=== PATIENT | female | born 2000 | race Caucasian/White ===

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

== ENCOUNTER 2021-06-17 21:16 | Emergency (ER) | payer OTHER, MEDICAID ==
[2021-06-17] MEDS ORDERED: Penicillin V Potassium 500 MG Tab PO ONE (21:49)
--- NOTE | 2021-06-17 21:51 | EDM.PDOC ---
ED HPI GENERAL MEDICAL PROBLEM - General Chief Complaint: ENT Problem Stated Complaint: SORE THROAT Time Seen by Provider: 06/17/21 21:35 Source of Information: Reports: Patient History Limitations: Reports: No Limitations - History of Present Illness INITIAL COMMENTS - FREE TEXT/NARRATIVE: Patient is 21-year-old female no significant past medical history does have history of recurrent strep throat infections. Patient presents with a chief complaint of throat pain. Patient states 3 days of pain. Patient reports associated mild fevers and pain with swallowing. Nothing seems to make symptoms better or worse. Patient denies any loss of taste, smell, nausea, vomiting, diarrhea, body aches. Patient has been staying home and self quarantining. Patient has no known Covid exposure. Throat Pain Score (Numeric/FACES): 8 - Related Data Allergies Allergy/AdvReac Type Severity Reaction Status Date / Time No Known Allergies Allergy Verified 06/17/21 21:38 Home Meds: Home Meds Butalb/Acetaminophen/Caffeine [Ssunsw-Iwlbujmh-Ccfk 50-325-40] 1 tab PO DAILY 06/28/19 [History] Meloxicam 7.5 mg PO DAILY 01/19/20 [History] Penicillin V Potassium [Veetids] 500 mg PO Q8H 10 Days #30 tab 06/17/21 [Rx] Past Medical History - Past Health History Medical/Surgical History: Denies Medical/Surgical History Cardiovascular History: Reports: Hypertension Other Cardiovascular History: HTN during Respiratory History: Reports: Asthma Other Respiratory History: well controlled Gastrointestinal History: Reports: GERD RESIDENTIAL ENERGY AUDITOR History: Reports: , Other (See Below) Other RESIDENTIAL ENERGY AUDITOR History: Musculoskeletal History: Reports: Fracture Other Musculoskeletal History: wrist Psychiatric History: Reports: Depression Endocrine/Metabolic History: Reports: Obesity/BMI 30+ - Infectious Disease History Infectious Disease History: Reports: None - Past Surgical History Female Surgical History: Reports: Section Social & Family History - Family History Family Medical History: No Pertinent Family History - Tobacco Use Tobacco Use Status *Q: Never Tobacco User - Caffeine Use Caffeine Use: Reports: Soda - Living Situation & Occupation Living situation: Reports: Single, with Family (Son) Occupation: Unemployed ED ROS ENT - Review of Systems Review Of Systems: See Below Free Text/Narrative/Comment: In addition to that documented in the HPI above, the additional ROS was obtained: Constitutional: Per HPI Eyes: Denies vision changes ENMT: Per HPI CV: Denies chest pain Resp: Per HPI GI: Denies vomiting or diarrhea : Denies painful urination MSK: Denies recent trauma Skin: Denies new rashes Neuro: Denies new numbness or tingling or weakness Endocrine: Denies unexpected weight loss Heme: Denies bleeding disorders ED EXAM, ENT - Physical Exam Exam: See Below Text/Narrative:: I have reviewed the triage vital signs Const: Well nourished, well developed, appears stated age Eyes: Extraocular movements are intact. No proptosis. No conjunctival injection HENT: Oropharynx demonstrates bilateral tonsillar swelling with exudates. Uvula is midline. Swelling is symmetric. Voice is normal. No difficulty with neck flexion or extension. No signs of trauma or swelling, Neck supple without meningismus CV: Regular Rate Rhythm, Warm, well-perfused extremities RESP: Unlabored respiratory effort MSK: No gross deformities appreciated Skin: Warm, dry. No rashes Neuro: Alert, head operator sulfide II-XII grossly intact. Sensation and motor function of ex tremities grossly intact. Psych: Appropriate mood and affect. Course - Vital Signs Last Recorded V/S: Last Vital Signs Temp 36.9 C 06/17/21 21:31 Pulse 71 06/17/21 21:31 Resp 16 06/17/21 21:31 BP 115/82 06/17/21 21:31 Pulse Ox 97 06/17/21 21:31 - Orders/Labs/Meds Orders: Active Orders 24 hr Category Date Time Status THROAT CULTURE [MREF] Stat Lab 06/17/21 21:49 Ordered Meds: Medications Discontinued Medications Generic Name Dose Route Start Last Admin Trade Name Bolaq PRN Reason Stop Dose Admin Penicillin V Potassium 500 mg 06/17/21 21:49 Penicillin V Potassium 500 Mg Tab PO 06/17/21 21:50 ONETIME ONE Departure - Departure Time of Disposition: 21:50 Disposition: Home, Self-Care 01 Clinical Impression: Strep pharyngitis - Discharge Information Prescriptions: Penicillin V Potassium [Veetids] 500 mg PO Q8H 10 Days #30 tab Referrals: Katia Armijo NP [Primary Care Provider] - Forms: ED Department Discharge, ED Return to Work/School Form Sepsis Event Note (ED) - Evaluation Sepsis Screening Result: No Definite Risk - Focused Exam Vital Signs: Vital Signs Temp Pulse Resp BP Pulse Ox 06/17/21 21:31 36.9 C 71 16 115/82 97 - My Orders Last 24 Hours: My Active Orders 06/17/21 21:49 THROAT CULTURE [MREF] Stat - Assessment/Plan Last 24 Hours: My Active Orders 06/17/21 21:49 THROAT CULTURE [MREF] Stat Assessment:: Patient is 21-year-old female with clinical evidence of streptococcal pharyngitis. Printed with differential was peritonsillar abscess, epiglottitis and COVID-19. No evidence of airway obstruction. Throat culture was ordered and patient was started on penicillin. Return precautions discussed as usual. Patient educated on treatment plan. All questions were addressed and answered.
== END 2021-06-17 22:14 | disposition home or self-care (01) ==
LOC: JD.ED 21:16
DX: J02.0 Streptococcal pharyngitis (principal); I10 Essential (primary) hypertension; E66.9 Obesity, unspecified; Z68.31 Body mass index [BMI] 31.0-31.9, adult
CPT/HCPCS: 87070; 99283; A9270

== ENCOUNTER 2021-08-30 08:52 | Emergency (ER) | payer OTHER, MEDICAID ==
--- NOTE | 2021-08-30 11:04 | EDM.PDOC ---
ED HPI GENERAL MEDICAL PROBLEM - General Chief Complaint: Upper Extremity Injury/Pain Stated Complaint: WRIST AND TAILBONE PAIN Time Seen by Provider: 08/30/21 10:54 - History of Present Illness INITIAL COMMENTS - FREE TEXT/NARRATIVE: 21-year-old female presents the emergency room with left forearm pain. At 630 this morning the patient did fall. She was going down some steps that were very slippery and down she went apparently there was some alcohol on board. Patient also hit her tailbone pretty hard. She is ambulatory and has had a bowel movement without difficulty. Patient denies any other injury associated with this most unfortunate event. Left arm and tailbone Pain Score (Numeric/FACES): 7 - Related Data Allergies Allergy/AdvReac Type Severity Reaction Status Date / Time No Known Allergies Allergy Verified 08/30/21 09:10 Past Medical History - Past Health History Medical/Surgical History: Denies Medical/Surgical History Cardiovascular History: Reports: Hypertension Other Cardiovascular History: HTN during Respiratory History: Reports: Asthma Other Respiratory History: well controlled Gastrointestinal History: Reports: GERD BURSAR History: Reports: , Other (See Below) Other BURSAR History: Musculoskeletal History: Reports: Fracture Other Musculoskeletal History: wrist Psychiatric History: Reports: Depression Endocrine/Metabolic History: Reports: Obesity/BMI 30+ - Infectious Disease History Infectious Disease History: Reports: None - Past Surgical History Female Surgical History: Reports: Section Social & Family History - Family History Family Medical History: No Pertinent Family History - Tobacco Use Tobacco Use Status *Q: Current Every Day Tobacco User Years of Tobacco use: 2 Packs/Tins Daily: 0.3 - Caffeine Use Caffeine Use: Reports: Soda - Alcohol Use Date of Last Drink: 08/30/21 - Recreational Drug Use Recreational Drug Use: Yes Recreational Drug Type: Reports: Marijuana/Hashish - Living Situation & Occupation Living situation: Reports: Single, with Family (Son) Occupation: Unemployed Review of Systems - Review of Systems Review Of Systems: See Below Constitutional: Reports: No Symptoms Respiratory: Reports: No Symptoms Cardiovascular: Reports: No Symptoms GI/Abdominal: Reports: No Symptoms Musculoskeletal: Reports: Arm Pain, Other (Pain in the tailbone region) Neurological: Reports: No Symptoms Psychiatric: Reports: No Symptoms ED EXAM, GENERAL - Physical Exam Exam: See Below Exam Limited By: No Limitations General Appearance: Alert, No Apparent Distress Head: Atraumatic, Normocephalic Neck: Normal Inspection, Supple, Non-Tender, Full Range of Motion. No: Lymphadenopathy (L), Lymphadenopathy (R) Respiratory/Chest: No Respiratory Distress, Lungs Clear, Normal Breath Sounds Cardiovascular: Regular Rate, Rhythm, No Edema, No Murmur GI/Abdominal: Normal Bowel Sounds, Soft, Non-Tender Extremities: Other (Left forearm is examined she is got some distal tenderness she cannot fully supinate her forearm. Neurovascular status is fairly well intact there is some mild tingling sensation in the digits.) ED TRAUMA EXTREMITY PROCEDURES - Splinting Left Upper Extremity Pre-Procedure NV Status: Normal Post-Procedure NV Status: Normal Splint Material: Fiberglass Splint Design: Volar (Could not get her to fully supinate her forearm so splinted in position of comfort) Applied & Form Fitted By: Provider Provider Post-Splint Application NV Check: NV Status Normal (Patient had normal neurovascular status after the splint was placed her extremity was slightly numb just prior to this but this seemed to be improved after splinting) Complications: No Course - Vital Signs Last Recorded V/S: Last Vital Signs Temp 36.6 C 08/30/21 09:10 Pulse 102 H 08/30/21 09:10 Resp 16 08/30/21 09:10 BP 124/75 08/30/21 09:10 Pulse Ox 95 08/30/21 09:10 - Orders/Labs/Meds Orders: Active Orders 24 hr Category Date Time Status Forearm 2V Lt [CR] Stat Exams 08/30/21 09:34 Taken - Re-Assessments/Exams Free Text/Narrative Re-Assessment/Exam: 08/30/21 11:16 The patient x-ray evaluation of the tailbone region and coccyx this is denied. X-rays were previously done of her forearm which show a nondisplaced fracture of the distal radius and I suspect a Ulnar styloid fracture this does not seem to involve the joint. Is able to review the x-rays with Dr. Tavo Craig on-call orthopedics with [facility] [place] who agrees with a volar splint and recommends follow-up early this next week for casting. 08/30/21 12:05 Splinting the patient is fairly insistent to be discharged as she has got to return her father's car to him so he can get to work. Departure - Departure Time of Disposition: 12:04 Disposition: Home, Self-Care 01 Clinical Impression: Closed left radial fracture - Discharge Information Referrals: Katia Armijo NP [Primary Care Provider] - Donald Ho MD [Physician] - Forms: ED Department Discharge Additional Instructions: Return to the emergency room with any questions problems or worsening symptoms. Follow-up with Dr. Ho today or the [facility] in [place] on Wednesday to arrange a cast to be applied. The phone number [phone] for the [facility] the number for the [facility] is [phone] Wear the splint at all times until the cast is applied. Use caution with driving as you used to be able to. Tylenol and/or Motrin as needed for discomfort. Keep your arm elevated as much as you can tolerate. Use ice over your wrist as tolerated every couple hours while awake. Sepsis Event Note (ED) - Evaluation Sepsis Screening Result: No Definite Risk - Focused Exam Vital Signs: Vital Signs Temp Pulse Resp BP Pulse Ox 08/30/21 09:10 36.6 C 102 H 16 124/75 95 - My Orders Last 24 Hours: My Active Orders 08/30/21 09:34 Forearm 2V Lt [CR] Stat - Assessment/Plan Last 24 Hours: My Active Orders 08/30/21 09:34 Forearm 2V Lt [CR] Stat
--- NOTE | 2021-09-01 13:56 | CR ---
EXAM: XR FOREARM 2 VIEWS LEFT LOCATION: [facility] DATE/TIME: 08/30/2021 9:34 AM INDICATION: Pain; lower or forearm; left COMPARISON: None. IMPRESSION: Acute transverse nondisplaced fracture of the distal radial metaphysis with extension into the distal radioulnar joint but no associated angulation. Negative left ulna. SIGNED BY: Kaden Payton MD 09/01/2021 12:09 PM ALEX
== END 2021-08-30 12:20 | disposition home or self-care (01) ==
LOC: JD.ED 08:52
DX: S52.502A Unspecified fracture of the lower end of left radius, initial encounter for closed fracture (principal); E66.9 Obesity, unspecified; I10 Essential (primary) hypertension; K21.9 Gastro-esophageal reflux disease without esophagitis; Z68.30 Body mass index [BMI] 30.0-30.9, adult; Z72.0 Tobacco use; W01.0XXA Fall on same level from slipping, tripping and stumbling without subsequent striking against object, initial encounter
CPT/HCPCS: 29125; 73090-26-LT; 73090-LT; 99283-25

== ENCOUNTER 2022-04-25 06:53 | Emergency (ER) | payer OTHER, MEDICAID | END 2022-04-25 09:12 | disposition home or self-care (01) | LOC: JD.ED 06:53 | DX: S93.401A Sprain of unspecified ligament of right ankle, initial encounter (principal); X50.1XXA Overexertion from prolonged static or awkward postures, initial encounter | CPT/HCPCS: 73600-26-RT; 73600-RT; 99283 ==

== ENCOUNTER 2022-08-17 14:49 | Emergency (ER) | payer OTHER, MEDICAID | END 2022-08-17 17:22 | disposition home or self-care (01) | LOC: JD.ED 14:49 | DX: K52.9 Noninfective gastroenteritis and colitis, unspecified (principal); J45.909 Unspecified asthma, uncomplicated; E66.9 Obesity, unspecified; Z68.30 Body mass index [BMI] 30.0-30.9, adult; Z72.0 Tobacco use; Z79.899 Other long term (current) drug therapy | CPT/HCPCS: 36415; 80053; 81001; 81025; 83690; 85025; 86140; 99284 ==

== ENCOUNTER 2023-11-12 21:42 | Emergency (ER) | payer OTHER, MEDICAID ==
[2023-11-12] MEDS: Albuterol/Ipratropium 3.0-0.5 MG/3 ML Neb Soln NEB ONE (22:01)
[2023-11-12] MEDS: predniSONE 20 MG Tab PO ONE (22:18)
== END 2023-11-12 22:35 | disposition home or self-care (01) ==
LOC: JD.ED 21:42
DX: J45.901 Unspecified asthma with (acute) exacerbation (principal); I10 Essential (primary) hypertension; J45.909 Unspecified asthma, uncomplicated; E66.9 Obesity, unspecified; F17.200 Nicotine dependence, unspecified, uncomplicated; Z86.16 Personal history of COVID-19; Z68.26 Body mass index [BMI] 26.0-26.9, adult
CPT/HCPCS: 94640; 99284; J7512; J7620-GY